=== PATIENT | female | born 1955 | race Caucasian/White ===

== ENCOUNTER 2019-03-27 07:35 | Day surgery (SDC) | payer BC ==
[2019-03-27] MEDS ORDERED: PROPOFOL 10 MG/ML VIAL IV ONE (07:36)
[2019-03-27] MEDS ORDERED: LIDOCAINE 2% MDV (20MG/ML) 20ML VIAL IV ONE (07:36)
--- NOTE | 2019-03-28 09:30 | Operative Note ---
OPERATION: COLONOSCOPY with cold forceps polypectomy x2. PREOPERATIVE DIAGNOSIS: Personal history of colon polyps. POSTOPERATIVE DIAGNOSIS: Colon polyps. PREPARATION QUALITY: Good. ESTIMATED BLOOD LOSS: Minimum. SPECIMENS: Ascending colon polyp and rectal polyp. PROCEDURE: After informed consent was obtained from the patient, she was placed in the left lateral decubitus position in the endoscopy suite, sedated and monitored by the department of anesthesia. Digital rectal examination was unremarkable. A well-lubricated [id number] colonoscope was inserted into the rectum and advanced to the cecum. The cecum and cecal bulb were unremarkable. Preparation quality was good. The ascending colon revealed a diminutive polyp removed with a cold forceps. The remainder of the ascending colon, transverse colon, descending colon, and sigmoid colon were unrevealing. No polyps, mass lesions, or inflammation was seen. The rectum revealed a diminutive polyp which was seen in J-turn position. This polyp was removed with a cold forceps. The endoscope was straightened and the rectum again was inspected and was unremarkable. The endoscope was straightened, the rectal ampulla deflated, and the endoscope was removed. RECOMMENDATIONS: I would suggest the patient resume her medications and diet. She will require repeat exam in 5 years pending tissue histology. As always, thank you for allowing me to participate in the healthcare of your patients. CC: MD ANGELINA Regalado
== END 2019-03-27 09:30 | disposition home or self-care (01) ==
LOC: HOP 07:35
PROVIDERS: ATTEND Internal Medicine Gastroenterology
DX: Z12.11 Encounter for screening for malignant neoplasm of colon (principal); Z86.010 Personal history of colon polyps; K63.5 Polyp of colon; K62.1 Rectal polyp; E78.00 Pure hypercholesterolemia, unspecified